=== PATIENT | male | born 1940 | race Caucasian/White ===

== ENCOUNTER 2016-11-22 17:11 | Emergency (ER) | payer OTHER, MEDICARE | END 2016-11-22 18:28 | disposition home or self-care (01) | LOC: ER 17:11 | DX: S40.021A Contusion of right upper arm, initial encounter (principal); V43.52XA Car driver injured in collision with other type car in traffic accident, initial encounter; Y92.410 Unspecified street and highway as the place of occurrence of the external cause; E11.9 Type 2 diabetes mellitus without complications; I50.9 Heart failure, unspecified; Z86.73 Personal history of transient ischemic attack (TIA), and cerebral infarction without residual deficits; M10.9 Gout, unspecified; Z95.0 Presence of cardiac pacemaker; Z87.891 Personal history of nicotine dependence; Z88.0 Allergy status to penicillin; Z79.84 Long term (current) use of oral hypoglycemic drugs; Z79.899 Other long term (current) drug therapy | CPT/HCPCS: 73060; 99284 ==

== ENCOUNTER 2016-11-28 13:29 | Emergency (ER) | payer OTHER | END 2016-11-28 14:53 | disposition home or self-care (01) | LOC: ER 13:29 | DX: L03.116 Cellulitis of left lower limb (principal); S80.12XA Contusion of left lower leg, initial encounter; V43.92XD Unspecified car occupant injured in collision with other type car in traffic accident, subsequent encounter; E11.9 Type 2 diabetes mellitus without complications; I10 Essential (primary) hypertension; Z79.899 Other long term (current) drug therapy; Z88.0 Allergy status to penicillin | CPT/HCPCS: 73590; 90471; 90715; 99283; 99283-25 ==